=== PATIENT | female | born 2000 | race Two or more races ===

== ENCOUNTER 2024-03-18 21:16 | Inpatient (IN) | payer MEDICAID, SELFPAY ==
[2024-03-18 07:30] VITALS: PULSE 97; RESP 18; O2SAT 96
[2024-03-18 21:34] VITALS: BP 136/83; PULSE 105
[2024-03-18 22:10] VITALS: RESP 18; TEMP 36.6; O2SAT 100
[2024-03-18 22:16] LABS: Basophils % (Auto) 0 % (0-2.5); Eosinophils % (Auto) 0 % (0-10); Hemoglobin 11.4 g/dL (12.0-16.0); Immature Granulocytes % (Auto) 0 % (0-0); Immature Granulocytes Auto 0.03 Thou/mm3 (0.00-0.00); Lymphocytes # (Auto) 3.3 Thou/mm3 (1.0-4.8); Lymphocytes % (Auto) 34 % (10-50); Mean Corpuscular HGB Conc 34.5 g/dl (31.0-37.0); Mean Corpuscular Hemoglobin 27.1 pg (25.0-35.0); Mean Corpuscular Volume 79 fL (80-100); Monocytes # (Auto) 0.8 Thou/mm3 (0.0-0.8); Monocytes % (Auto) 8 % (0-12); Neutrophils # (Auto) 5.6 Thou/mm3 (1.8-7.7); Neutrophils % (Auto) 57 % (37-80); Nucleated Red Blood Cell % 0 /100 WBC (0); Platelet Count 188 Thou/mm3 (140-440); RDW Standard Deviation 43.5 fL (36.4-46.3); White Blood Count 9.7 Thou/mm3 (3.6-11.0)
[2024-03-18 22:19] VITALS: BMI 33.0
[2024-03-18] MEDS: DINOPROSTONE 10 MG VAG.SUPP VAGINAL (22:29)
[2024-03-18 22:40] VITALS: BP 132/59; PULSE 89
[2024-03-18 23:32] LABS: Syphilis Nonreactive (Nonreactive)
[2024-03-18 23:40] VITALS: BP 108/61; PULSE 102
[2024-03-19] VITALS (131 sets, daily range): BP systolic 102–163; BP diastolic 56–116; PULSE 62–112; RESP 16–18; TEMP 2.9–37.3; O2SAT 72–99
--- NOTE | 2024-03-19 05:29 | PD.LDHP ---
Documentation for date of: 03/19/24 OB Labor/Induct. HPI History of Present Illness Chief complaint: induction : 2 Para: 1 Term pregnancies: 1 pregnancies: 0 Living children: 1 History of Abortions: Spontaneous and Elective: 0 History of Vaginal deliveries: 1 History of sections: No History of : No Date of last menstrual period: 06/05/23 KATHRYN: 03/24/24 Gestational Age (weeks): 39 Gestational Age (days): 2 Gestational age based on last menstrual period: 41 Indication for induction: maternal discomfort History of present illness: 23-year-old 2 para 1 admit to labor and delivery for induction of labor patient has been induced for elective reasons. She is been followed at [facility] care. First visit 9 weeks. She had LMP her period was 2 9 and her EDC 03/11/2024. First ultrasound at 12 weeks was September 10 and this change due date to March 24. And then patient had a 20-week anatomy scan as well that also confirm dates. 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 No chronic illness. Patient is O+, antibody screen negative, RPR nonreactive, rubella immune, hepatitis B negative, HIV negative, hep C negative, GC and Chlamydia were negative. aFP and NIPT negative. Negative carrier screen. 1 hour was normal History of Present Dating criteria: LMP confirmed by 1st trimester US Adequate Care: Yes Ultrasounds: normal 1st trimester US and normal mid trimester US Obstetrical complications: none Medical complications: none Labs Labs: Negative: Hepatitis B, HIV, Chlamydia, Gonorrhea and Group Beta Strep Review of Systems Review of Systems Systems Reviewed: All systems reviewed, normal except as documented Past Medical History Surgical History SURGICAL: Negative Section Meds Home Medications and Allergies Allergies Allergy/AdvReac Type Severity Reaction Status Date / Time NKA Allergy Unknown Uncoded 12/10/23 17:57 OB Exam Physical Exam Vital signs: Temp Pulse Resp BP Pulse Ox O2 Del Method 97.9 F 82 18 121/72 100 Room Air 03/18/24 22:10 03/19/24 05:05 03/18/24 22:10 03/19/24 05:05 03/18/24 22:10 03/18/24 22:10 Narrative: Alert and oriented. Normal heart rate and rhythm. Lungs clear no wheezes. Gravid abdomen. Gynecoid pelvis. Estimated weight 7 and half pounds. Vaginal examination was long and 1. Posterior. Thick. Vertex bag water intact. Detailed Labor and Delivery Exam Dilation (cm): closed Effacement (%): thick Cervix position: posterior station: -3 Consistency: medium Presentation: Vertex Cervical ripeness score: 3 Membranes: intact Baseline heart rate: 145 monitor accelerations: 15x15 monitor decelerations: None shelter variability: Moderate (11-25) Contraction frequency (min): occ Contraction duration (sec): 30 Tachysystole: No Contraction intensity: Mild OB Results Labs 03/18/24 21:30 Labs: Short CBC 03/18/24 Range/Units 21:30 WBC 9.7 (3.6-11.0) Thou/mm3 Hgb 11.4 L (12.0-16.0) g/dL Hct 33.0 L (36.0-46.0) % Plt Count 188 (140-440) Thou/mm3 Impressions Impression: 24 hr pp OB Assessment & Plan Assessment and Plan (1) Normal labor and delivery: Status: Acute Additional Plan Induction method: per misoprostol protocol Plan: induction, anticipate NVD and consult MD bear
--- NOTE | 2024-03-19 06:19 | XR_ITS ---
Examination: age Limited Technique: Limited transabdominal sonographic images pelvis Indications: Pelvic contractions beginning 2 hours ago, unknown presentation Exam date and time: March 19, 2024 0626 hrs. Findings: Viable intrauterine gestation cephalic presentation Cardiac motion 124 BPM Impression: Viable intrauterine gestation cephalic presentation
--- NOTE | 2024-03-19 08:14 | PRELIM_ITS ---
Obstetric ultrasound (transabdominal ). March 19, 2024 0626 hours Clinical history: Determine pres entation Technique: Real-time ultrasound was performed Comparison: No prior study is available for co mparison. Findings:There is an intrauterine gestation with a single live fetus in cephalic presentati on. cardiac activity is present at heart rate of 124 beats per minute. Impression:Intrauterine gestation with a single live fetus in cephalic presentation. Report Electronically Signed By: Sam mcnally 03/19/2024 8:13:41 AM [EST]
[2024-03-19] MEDS: MEPERIDINE INJ 50 MG/ML VIAL 75 MG IM (09:10)
[2024-03-19] MEDS: PROMETHAZINE INJ 25 MG/ML VIAL 12.5 MG IM (09:11)
[2024-03-19] MEDS: RINGERS LACTATED 1000 ML 1,000 ML 999 ML IV (11:00)
--- NOTE | 2024-03-19 16:57 | PD.LDPN ---
Documentation for date of: 03/19/24 OB Labor Progress Note Pain Control Pain control: epidural Pelvic Exam Dilation (cm): 8 Effacement (%): 70 station: +2 Amniotic membrane status: Ruptured Contractions Monitor mode: External Contraction frequency: 3-5 Contraction duration: 60 Contraction phase: Resting Contraction intensity: Mild Status status: Category l Assessment and Plan Assessment: active labor Plan OB labor note: continuous present management CNM Management MD Consulted (describe details below): Yes
[2024-03-19] MEDS: OXYTOCIN in NS 20 units 20 UNIT/1,000 ML BAG 125 UNIT IV (17:23)
[2024-03-19] MEDS: MISOPROSTOL 200 mCg TABLET 800 MCG PR (17:23)
[2024-03-19] MEDS: OXYTOCIN INJ 10 UNIT/ML VIAL IM (17:28)
[2024-03-19] MEDS: METHYLERGONOVINE INJ 0.2 MG/ML VIAL IM (17:34)
--- NOTE | 2024-03-19 18:00 | OBDSUM_ITS ---
Data ([place]) Data Hx Section: No : 2 Para: 1 Term: 1 : 0 : 0 Delivery Data ([place]) Labor Data Stimulated/Augmented: No Induction: Yes Method: Cervidil ROM Date: 03/19/24 ROM Time: 16:46 Rupture Type: AROM Amniotic Fluid: Clear Delivery Data EDC: 03/24/24 EDC calculated by:: LMP/early US confirmation Labor Onset Stage 1 Date: 03/19/24 Labor Onset Stage 1 Time: 08:55 Labor Onset Stage 2 Date: 03/19/24 Labor Onset Stage 2 Time: 17:17 Delivery Date: 03/19/24 Delivery Time: 17:20 Gestational age (weeks): 39 Gestational age (days): 2 Placenta Delivery Date: 03/19/24 Placenta Delivery Time: : Delivered by: Mirella Jung Delivery nurse: Lakesha Wesley Other staff at delivery: Nursery Nurse Other staff at delivery: 2nd Nurse Other staff at delivery: Sara Nuñez Other staff at delivery: Briana Day Delivery Method Delivery: Vaginal Delivery Type: Spontaneous Presentation: Vertex Position: XIANG Anesthesia Type Primary Anesthesia: Epidural Delivery Room Medications Intrapartum Medications: Narcotics and Tocolytics Other Intrapartum Medications: Yes Post Delivery Medications: Tocolytics, Cytotec and Ergotrate Placenta Placenta Delivery: Spontaneous (placenta inspected, intact) Placenta Cultures Obtained: No Placenta Sent for Examination: No Cord Sample: Cord Blood Obtained Episiotomy Episiotomy: None (intact) EBL Estimated blood loss (ml): 400 Umbilical Cord Umbilical Vessels: 3 Nuchal Cord: x1 Loosely Body Cord: None [place] Data ([facility]) Data Infant Gender: Female Weight Grams: 3320 1 Minute Total: 8 5 Minute Total: 9
[2024-03-19] MEDS: TRANEXAMIC ACID 1,000 MG IVPB 1,000 MG/100 ML BAG 200 MG IV ×2 (18:07→19:05)
[2024-03-19] MEDS: BENZO/LANO/ALOE (Dermoplast) 60 GM CAN 1 SPRAY TOP (18:10)
[2024-03-19] MEDS: NIFEdipine 10 MG CAPSULE PO (18:32)
[2024-03-19] MEDS: IBUPROFEN TAB 400 MG TABLET 800 MG PO (19:06)
[2024-03-19] MEDS: DOCUSATE SOD 100 MG CAPSULE PO (21:02)
[2024-03-20 03:21] LABS: Basophils % (Auto) 0 % (0-2.5); Eosinophils % (Auto) 0 % (0-10); Hematocrit 29.2 % (36.0-46.0); Hemoglobin 10.2 g/dL (12.0-16.0); Immature Granulocytes % (Auto) 1 % (0-0); Immature Granulocytes Auto 0.05 Thou/mm3 (0.00-0.00); Lymphocytes # (Auto) 2.2 Thou/mm3 (1.0-4.8); Lymphocytes % (Auto) 22 % (10-50); Mean Corpuscular HGB Conc 34.9 g/dl (31.0-37.0); Mean Corpuscular Volume 80 fL (80-100); Monocytes # (Auto) 0.8 Thou/mm3 (0.0-0.8); Monocytes % (Auto) 8 % (0-12); Neutrophils # (Auto) 7.2 Thou/mm3 (1.8-7.7); Neutrophils % (Auto) 69 % (37-80); Nucleated Red Blood Cell % 0 /100 WBC (0); Platelet Count 111 Thou/mm3 (140-440); RDW Standard Deviation 45.8 fL (36.4-46.3); Red Blood Count 3.64 Miln/mm3 (4.00-5.20); White Blood Count 10.3 Thou/mm3 (3.6-11.0)
[2024-03-20 04:52] VITALS: BP 114/69; PULSE 61; RESP 16; TEMP 36.6; O2SAT 98
[2024-03-20 08:10] VITALS: BP 108/67; PULSE 67; RESP 16; TEMP 36.8; O2SAT 95
[2024-03-20] MEDS: ACETAMINOPHEN 325 MG TABLET 650 MG PO (09:17)
[2024-03-20] MEDS: DOCUSATE SOD 100 MG CAPSULE PO (09:17)
[2024-03-20 12:00] VITALS: BP 109/72; PULSE 81; RESP 16; TEMP 36.7; O2SAT 96
--- NOTE | 2024-03-20 13:09 | PD.LDPPPRG ---
Subjective Subjective Interval history: No complaints of pain. No dizziness. Bonding and breast-feeding Exam Vital Signs Temp Pulse Resp BP Pulse Ox O2 Del Method 98.0 F 81 16 109/72 96 Room Air 03/20/24 12:00 03/20/24 12:00 03/20/24 12:00 03/20/24 12:00 03/20/24 12:00 03/20/24 12:00 Narrative Exam Vital signs stable afebrile. Breasts are soft. Fundus firm below the umbilicus. Perineum intact no swelling. Small lochia. Uterus well involuted. Negative Homans' sign. No signs of phlebitis. Objective Labs 03/20/24 02:59 Labs: Laboratory Results - last 24 hr 03/20/24 02:59 WBC 10.3 RBC 3.64 L Hgb 10.2 L Hct 29.2 L MCV 80 MCH 28.0 MCHC 34.9 RDW Std Deviation 45.8 Plt Count 111 L D Neut % (Auto) 69 Lymph % (Auto) 22 [place] % (Auto) 8 Eos % (Auto) 0 Baso % (Auto) 0 Neut # (Auto) 7.2 Lymph # (Auto) 2.2 [place] # (Auto) 0.8 Eos # (Auto) 0.0 Baso # (Auto) 0.0 Immature Gran # (Auto) 0.05 H Absolute Nucleated RBC 0.00 Immature Gran % 1 H Nucleated RBC % 0 Assessment & Plan Problem List (1) Normal labor and delivery: Status: Acute Assessment Comment Assessment comment: 24 hr pp Plan Comment Plan Comment: Discharge home with baby. Continue vitamins and iron. Tylenol ibuprofen for pain. Danger signs. Return in 3 weeks . Discussed signs and symptoms of infection. Discussed ER precautions and parameters. Time Spent With Patient Time: Total time spent is greater than 50% in coordination of care (as documented) at patient's floor/unit and/or counseling patient:
--- NOTE | 2024-03-20 13:11 | ESDS_ITS ---
DS: Providers Provider Date of admission: 03/18/24 21:16 Primary care physician: Renetta Ruiz NP Admitting Provider: Keith Ornelas MD Attending Provider on Admission: Mirella Iglesias CNM Consults: 03/19/24 18:26 Referral Routine Comment: Attending Provider on DC: Mirella Iglesias CNM Discharging Provider: Mirella Iglesias CNM DS: Diagnosis Problem List Completed Was Problem List Reviewed/Reconciled?: Yes Summary/Hosp Course Brief History: 23-year-old 2 para 1 admit to labor and delivery for induction of labor patient has been induced for elective reasons. She is been followed at [facility] care. First visit 9 weeks. She had LMP her period was 2 9 and her EDC 03/11/2024. First ultrasound at 12 weeks was September 10 and this change due date to March 24. And then patient had a 20-week anatomy scan as well that also confirm dates. 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 No chronic illness. Patient is O+, antibody screen negative, RPR nonreactive, rubella immune, hepatitis B negative, HIV negative, hep C negative, GC and Chlamydia were negative. aFP and NIPT negative. Negative carrier screen. 1 hour was normal Peripartum Data Delivery Method: Normal Vaginal Delivery Episiotomy Description: None Laceration Description: no Time Spent with Patient Time attestation: Total time spent providing and/or coordinating discharge services: Exam Vital Signs Temp Pulse Resp BP Pulse Ox O2 Del Method 98.0 F 81 16 109/72 96 Room Air 03/20/24 12:00 03/20/24 12:00 03/20/24 12:00 03/20/24 12:00 03/20/24 12:00 03/20/24 12:00 Discharge Plan Plan Patient Disposition: HOME (Self Care) Prescriptions/Referrals Referrals: Renetta Ruiz NP [Primary Care Provider] - Patient/Caregiver Discharge Instructions Print Language: [place] Activity Restrictions/Additional Instructions: Discharge home with baby. Continue vitamins and iron. Tylenol ibuprofen for pain. Danger signs. Return in 3 weeks visit. Discussed signs and symptoms of infection. Discussed ER precautions and parameters given. Increase fluids and rest Stand Alone Forms: Marly Award Info., Patient Portal Info Letter Discharge Order Discharge Orders: Discharge (Routine); Ordered 03/20/24 Ordered By: Mirella Iglesias Planned Discharge Date 03/20/24
[2024-03-20 15:40] VITALS: BP 122/61; PULSE 75; RESP 16; TEMP 36.8; O2SAT 98
[2024-03-20] MEDS: DIPHTH,PERTUSS(ACELL),TET VAC 0.5 ML VIAL IMi (17:57)
== END 2024-03-20 18:06 | disposition home or self-care (01) | DRG 560 ==
LOC: S4SX 03-19 17:30 → S4NX 03-19 19:23
PROVIDERS: Admitting Provider Student in an Organized Health Care Education/Training Program; PCP Nurse Practitioner Family; Visit Provider Advanced Practice Midwife
DX: O69.81X0 Labor and delivery complicated by cord around neck, without compression, not applicable or unspecified (principal); Z37.0 Single live birth; Z3A.39 39 weeks gestation of pregnancy; Z23 Encounter for immunization
CPT/HCPCS: 36415; 59409; 76815; 85025; 86780; 86850; 86900; 86901; 90715; 94762; J2175; J2210; J2550; J2590; J2795; J3010; J3490; J7120; S0191; A9270

== ENCOUNTER 2025-01-03 22:30 | Emergency (ER) | payer MEDICAID, SELFPAY ==
[2025-01-03 23:41] VITALS: BP 129/85; PULSE 89; RESP 18; TEMP 36.8; O2SAT 98; BMI 32.1
[2025-01-04] MEDS: ONDANSETRON ODT 4 MG TABRAP PO (00:44)
[2025-01-04 02:21] VITALS: RESP 18
--- NOTE | 2025-01-04 03:00 | PD.EDNV ---
Nausea/Vomit./Diarrhea-RME/HPI General Chief complaint: Nausea/Vomiting/Diarrhea Stated complaint: N/V/D Time Seen by Provider: 01/04/25 00:26 Arrival date/time: 01/03/25 22:30 24F with no significant PMH presents to ED with several days of N/V and non-bloody diarrhea. Daughter has similar symptoms. Limitations: no limitations Related Data Previous Rx's ?Medication ?Instructions ?Recorded ondansetron 4 mg disintegrating 4 mg PO Q8H PRN nausea and 01/04/25 tablet vomiting #14 tabs Allergies Allergy/AdvReac Type Severity Reaction Status Date / Time No Known Allergies Allergy Verified 01/03/25 22:31 Review of Systems Review of Systems Systems Reviewed: All systems reviewed, normal except as documented Gastrointestinal Gastrointestinal: Reports as per HPI, Reports diarrhea, Reports nausea and Reports vomiting Past Medical History Past Medical History NEUROLOGIC: Negative Neurological Disorders CARDIAC: Negative Cardiac Disorders or Congestive Heart Failure RESPIRATORY: Negative Chronic Obstructive Pulmonary Disease (COPD) GASTROINTESTINAL: Negative Gastrointestinal Disorders or Hepatitis GENITOURINARY: Negative Genitourinary Disorders or Renal Disease REPRODUCTIVE: Positive Previous Pregnancies; Negative Endometriosis, Genital Herpes, Gonorrhea, Pelvic Inflammatory Disease, Syphilis or Uterine Prolapse MUSCULOSKELETAL: Negative Musculoskeletal Disorders ENDOCRINE: Negative Endocrine Disorders, Diabetes Mellitus Type 1 or Diabetes Mellitus Type 2 HEMATOLOGIC: Negative Blood Disorders OTHER HISTORY: Positive Hospitalization (delivery of first baby); Negative Autoimmune Disease, Down Syndrome, Developmental Delay, Shingles, Falls, Blood Transfusions, Anesthesia Reactions, MRSA, VRSA, Vancomycin-Resistant Enterococci, Human Immunodeficiency Virus (HIV), Chicken Pox, Measles, Mumps, Rubella (Setswana Measles), Pertussis, Clostridium Difficile or Cancer Family History FAMILY HISTORY: Negative Family Psychiatric Problems, Family Respiratory Disorders, Family Cardiac Disorders, Family Gastrointestinal Problems, Family Cancer, Family Surgery or Family Anesthesia Reaction Surgical History SURGICAL: Negative Section Social History SMOKING STATUS: Never smoker ED Exam General Limitations: Present no limitations General appearance: Present alert and in no apparent distress Head Head exam: Present atraumatic Neck Neck exam: Present normal inspection, full ROM and trachea midline Chest Chest inspection: Present normal inspection and symmetric chest wall rise Psychiatric Psychiatric exam: Present normal affect and normal mood Skin Skin exam: Present warm, dry, intact and normal color Course Quality Measures none Orders Category Date Time Status Ondansetron Odt [Zofran Odt] Med 01/04/25 00:27 Discontinued 4 mg PO X1 ONE Vital Signs Vital signs: Vital Signs Temperature 98.2 F 01/03/25 23:41 Pulse Rate 89 01/03/25 23:41 Respiratory Rate 18 01/03/25 23:41 Blood Pressure 129/85 H 01/03/25 23:41 Pulse Oximetry (%) 98 01/03/25 23:41 Oxygen Delivery Method Room Air 01/03/25 23:41 O2 at 98% on RA and WNLs Nausea/Vomiting/Diarrhea MDM Narrative MDM Narrative:: 24F with no significant PMH presents to ED with several days of N/V and non-bloody diarrhea. Daughter has similar symptoms. Physical exam reveals well-appearing female. Patient is afebrile, calm, and alert. Meds and residential counselor given. Patient data External records reviewed:: [facility] previous records Clinical information provided by:: patient Social determinants that could affect healthcare access:: none Patient has the following chronic illnesses:: none How is presenting disease/condition affected by chronic disease/condition?: no chronic disease Evaluation data The following diagnostics were reviewed and interpreted by me:: other (specify) (none) Lab and/or radiology exams considered but not ordered:: not ordered Interpretation Summary: n/a Medications / Prescriptions Medications / Prescriptions considered but not ordered:: ordered Medication administrations:: Medication Administration History Discontinued Medications Ondansetron HCl (Ondansetron Odt 4 Mg Tabrap) 4 mg PO X1 ONE; Protocol Stop: 01/04/25 00:28 Last Admin: 01/04/25 00:44 Dose: 4 mg Documented By: CVL above Consultations Consultation(s) initiated? (list below): No Diagnosis Nausea Differential Diagnosis: traveler's diarrhea, food poisoning, gastroenteritis, clostridium difficile infection, drug-induced nausea and vomiting and dehydration Most likely diagnosis given after review of the tests above:: gastroenteritis Admission Indicated Admission indicated?: not indicated Admission Request Was there a request for admission?: No Disposition Plan Disposition Plan: Discharge Discharge Attestation Discharge Attestation: The patient and all family members were given an opportunity to ask questions and understood the discharge instructions. Discharge instructions specifically effects, indications for sooner follow up or return to the emergency department, and the expected course of current diagnosis. Patient condition: Stable Discharge Plan Plan Patient Disposition: HOME (Self Care) Discharge Disposition comment: Stable Prescriptions/Referrals Prescriptions/Med Rec: New ondansetron 4 mg tablet,disintegrating 4 mg PO Q8H PRN (Reason: nausea and vomiting) Qty: 14 0RF Referrals: No Primary/Family,Physician [Primary Care Provider] - In 1 week Problem List Clinical Impression: Gastroenteritis Patient/Caregiver Discharge Instructions Education Materials: ED Diarrhea, Viral (Adult) Additional Instructions: Please follow-up with PCP within 24-48 hours and return immediately if symptoms worsen. Stay hydrated. Print Language: [place] Stand Alone Forms: Patient Portal Info Letter PA/PERSONNEL PLACEMENT SPECIALIST Supervising Physician PA/PERSONNEL PLACEMENT SPECIALIST Supervising Physician: Dr. Dickerson
== END 2025-01-04 02:22 | disposition home or self-care (01) ==
PROVIDERS: Emergency Provider Emergency Medicine
DX: K52.9 Noninfective gastroenteritis and colitis, unspecified (principal)
CPT/HCPCS: 99282; Q0162